=== PATIENT | female | born 2000 ===

== ENCOUNTER 2024-01-20 07:09 | Day surgery (SDC) | payer OTHER, SELFPAY ==
[2023-12-31 14:19] VITALS: BMI 25.1
[2024-01-04 10:49] VITALS: BMI 25.2
--- NOTE | 2024-01-19 13:56 | P.PNAN_ITS ---
Anes - Initial Pre Proc Eval Procedure: Operation Date: 01/20/24 09:00 Proposed Procedures p Esophagogastroduodenoscopy - Pedro Holland MD s Diagnostic Colonoscopy - Pedro Holland MD Date/Time: 01/19/24 13:56 Surgeon: Pedro Holland MD Pre Op Diagnosis: Nausea, Vomitting, Change in Bowel Habits Patient Data Age: 23 Gender: F Height: 1.63 m Weight: 66.7 kg Allergies Allergy/AdvReac Type Severity Reaction Status Date / Time No Known Allergies Allergy Verified 01/04/24 10:48 Home Medications Medication Instructions Recorded Confirmed Type bupropion HCl 150 mg 24 hr tablet, 150 mg PO QAM 11/19/23 01/20/24 History extended release dextroamphetamine-amphetamine 10 10 mg PO DIRECTED 11/19/23 01/20/24 History mg tablet dextroamphetamine-amphetamine 20 20 mg PO DIRECTED 11/19/23 01/20/24 History mg tablet omeprazole 20 mg tablet,delayed 20 mg PO DAILY 12/30/23 01/20/24 History release Patient hx anesthesia problems: none Family hx anesthesia problems: none Results Review: All pre-operative results and documents have been reviewed as part of the pre- operative evaluation. [facility] Past Medical History Medical History (Updated 12/30/23 @ 14:19 by MARCOS Rossi) Hx of substance abuse Irritable bowel syndrome with alternating bowel habits Nausea and vomiting Family History Family History Other Carcinoma of colon Social History Social History Smoking status: Former smoker Alcohol intake: former Alcohol use details: quit at age 21 Substance use: former Substance use type: former substance user, marijuana, crack/cocaine, sedatives, opiates and prescription drug Do You Feel Safe in your Home?: Yes Living arrangements: with family Additional living arrangements comments: with her Mom in [place] Occupation/Education: unemployed Anes - Eval Final PreProcedure Day of Procedure 01/19/24 13:56 Patient weight: overweight Heart: regular rate and rhythm Lungs: clear to auscultation and normal air movement Airway: Mallampati scale class II Neurological: alert and oriented Last oral intake: >/= 8 hours ASA classification: III Emergent: no Anesthetic plan: proceed Anesthesia type and monitoring: general GIVS and standard monitoring Results Review: All pre-operative results and documents have been reviewed as part of the pre- operative evaluation. Informed Consent: The patient's anesthetic plan and its attendant risks and benefits were discussed with the patient/family/POA. Questions were solicited and answers provided to the satisfaction of the patient/family/POA.
[2024-01-20 07:41] VITALS: BP 106/82; PULSE 90; RESP 16; TEMP 36.8; O2SAT 100; BMI 24.7
[2024-01-20] MEDS: LACTATED RINGERS 1,000 ML 150 ML IV CONT (08:01)
--- NOTE | 2024-01-20 08:16 | WPDHPUPDATE1 ---
History and Physical Update Update Date/Time: 01/20/24 08:16 History and Physical has been reviewed, including an updated exam of the patient. There are NO changes in the patient's condition. Risks, benefits, and alternatives have been discussed and questions answered. Patient agrees to proceed with procedure.
[2024-01-20 09:19] VITALS: BP 103/67; PULSE 90; RESP 16; O2SAT 100
[2024-01-20 09:29] VITALS: BP 107/69; PULSE 91; RESP 15; O2SAT 100
[2024-01-20 09:39] VITALS: BP 112/80; PULSE 82; RESP 16; O2SAT 100
--- NOTE | 2024-01-20 12:55 | WPDANESPN ---
Anes - Prog Note Post-Op Date/Time: 01/20/24 12:55 Cardiovascular status: normal Respiratory status: normal Airway patency: baseline Mental status: baseline Post-Op hydration status: normal Vital Signs: Last Vital Signs Temp 36.8 C 01/20/24 07:41 Pulse 82 01/20/24 09:39 Resp 16 01/20/24 09:39 BP 112/80 01/20/24 09:39 Pulse Ox 100 01/20/24 09:39 O2 Del Method Room Air 01/20/24 09:39 Pain Score (VAS): 0 I/O: Intake & Output 01/19/24 01/20/24 01/20/24 23:59 07:59 15:59 Intake Total 800 Balance 800 Post-procedural complaints: none Patient Feedback: Patient satisfied with anesthetic care. Other Findings: Patient vital signs back to baseline. Patient denies nausea and vomiting. Patient's pain under control. Patient OK for discharge.
== END 2024-01-20 09:53 | disposition home or self-care (01) ==
PROVIDERS: PCP Nurse Practitioner Family; Visit Provider Internal Medicine Gastroenterology
PROC: 0DJ08ZZ Inspection of Upper Intestinal Tract, Via Natural or Artificial Opening Endoscopic (ICD-10-PCS; CPT 43235; principal; 2024-01-20 09:00)
PROC: 0DJD8ZZ Inspection of Lower Intestinal Tract, Via Natural or Artificial Opening Endoscopic (ICD-10-PCS; CPT 45378; 2024-01-20 09:00)
DX: K62.5 Hemorrhage of anus and rectum (principal); R19.4 Change in bowel habit; K64.8 Other hemorrhoids; R11.2 Nausea with vomiting, unspecified; K22.10 Ulcer of esophagus without bleeding
CPT/HCPCS: 45378; 43239

== ENCOUNTER 2024-01-28 15:19 | Outpatient (CLI) | payer OTHER, SELFPAY ==
--- NOTE | ~2024-01-28 | XR_ITS ---
EXAMINATION: XR chest 2V 01/28/2024 15:35 INDICATION: Dyspnea PROCEDURE: 2 view chest COMPARISON: No prior studies FINDINGS: The lungs are clear. The cardiomediastinal silhouette is within normal limits. There are no pleural effusions. There is no pneumothorax suspected. IMPRESSION: 1: NO ACUTE CARDIOPULMONARY DISEASE. Reviewed, dictated and finalized at location B.
== END 2024-01-28 15:20 ==
PROVIDERS: PCP Nurse Practitioner Family; Visit Provider Family Medicine Adolescent Medicine
DX: R63.4 Abnormal weight loss (principal); R06.00 Dyspnea, unspecified
CPT/HCPCS: 71046